=== PATIENT | female | born 1960 | race Caucasian/White ===

== ENCOUNTER 2019-08-29 10:38 | Outpatient (CLI) | payer OTHER, SELFPAY ==
[2019-08-29 11:09] LABS: Basophils Percent Auto 0.6 % (0.2-1.2); Eosinophils Absolute Auto 0.2 K/mm3 (0-0.3); Eosinophils Percent Auto 3.7 % (0-4.4); Hematocrit 42.6 % (37.0-47.0); Hemoglobin 13.9 g/dL (12.0-15.0); Immature Granulocyte Absolute 0.02 K/mm3 (0.00-0.031); Immature Granulocyte Percent A 0.4 % (0-0.5); Lymphocytes Absolute Auto 1.59 K/mm3 (0.9-3.2); Lymphocytes Percent Auto 30.6 % (18.3-44.2); Mean Corpuscular HGB Conc 32.6 g/dl (32-36); Mean Corpuscular Hemoglobin 29.6 pg (26-34); Mean Corpuscular Volume 90.8 fl (80-100); Mean Platelet Volume 11.3 fl (7.4-10.4); Monocytes Absolute Auto 0.5 K/mm3 (0.1-0.6); Monocytes Percent Auto 9.4 % (2.6-8.5); Neutrophils Absolute Auto 2.9 K/mm3 (1.3-6.7); Neutrophils Percent Auto 55.3 % (45.5-73.1); Platelet Count Result 256 k/mm3 (150-375); Red Blood Count 4.69 M/mm3 (4.2-5.4); Red Cell Distribution Width 13.9 % (11.5-14.5); White Blood Count 5.2 K/mm3 (4.5-10.0)
[2019-08-29 11:23] LABS: Hemoglobin A1C 5.7 % (<5.7)
[2019-08-29 11:25] LABS: Alanine Aminotransferase 34 U/L (4-35); Albumin Level 4.3 g/dL (3.5-5.1); Alkaline Phosphatase 69 U/L (38-126); Aspartate Amino Transferase 29 U/L (14-36); Bilirubin,Total 0.3 mg/dL (0.2-1.3); Blood Urea Nitrogen 19 mg/dL (7-17); Calcium 9.3 mg/dL (8.4-10.2); Carbon Dioxide 29 mmol/L (22-30); Chloride 102 mmol/L (98-107); Cholesterol 244 mg/dL (0-200); Estimated Glomerular Filt Rate > 60; Glucose 93 mg/dL (65-105); HDL Direct 52 mg/dL; Potassium 4.1 mmol/L (3.4-5.0); Sodium 137 mmol/L (137-145); Triglycerides 101 mg/dL (<150)
[2019-08-29 11:35] LABS: LDL Cholesterol Direct 166 mg/dL
[2019-08-29 11:49] LABS: Vitamin D 25 Hydroxy 45.7 ng/mL
== END 2019-08-29 10:39 | disposition home or self-care (01) ==
PROVIDERS: PCP Family Medicine; Visit Provider Family Medicine
DX: Z13.220 Encounter for screening for lipoid disorders (principal); F98.8 Other specified behavioral and emotional disorders with onset usually occurring in childhood and adolescence; R73.01 Impaired fasting glucose; E55.9 Vitamin D deficiency, unspecified
CPT/HCPCS: 36415; 80053; 80061; 82306; 83036; 84443; 85025

== ENCOUNTER 2019-09-05 12:01 | Outpatient (CLI) | payer OTHER, SELFPAY ==
[2019-09-05 13:06] LABS: Urine Cotinine NEGATIVE
== END 2019-09-05 12:02 | disposition home or self-care (01) ==
LOC: ANHSURGERY 12:04
PROVIDERS: PCP Family Medicine; Visit Provider Orthopaedic Surgery
DX: M17.11 Unilateral primary osteoarthritis, right knee (principal)
CPT/HCPCS: 36415; 80307; 87081

== ENCOUNTER 2019-09-23 00:20 | Outpatient (CLI) | payer OTHER, SELFPAY ==
[2019-09-23 18:32] LABS: SARS-CoV-2 RNA PCR Negative
== END 2019-09-23 00:21 | disposition home or self-care (01) ==
LOC: ANHCOVIDDT 00:21
PROVIDERS: PCP Family Medicine; Visit Provider Orthopaedic Surgery
DX: Z01.812 Encounter for preprocedural laboratory examination (principal); Z11.59 Encounter for screening for other viral diseases
CPT/HCPCS: 87635; C9803; U0003

== ENCOUNTER 2019-09-26 02:07 | Day surgery (SDC) | payer OTHER, SELFPAY ==
[2019-09-05 12:24] VITALS: BP 158/88; PULSE 98; RESP 20; TEMP 37.2; O2SAT 97
[2019-09-05 12:43] VITALS: BMI 36.0
--- NOTE | 2019-09-25 12:42 | WPDANESEPPF ---
Anes - Initial Pre Proc Eval Procedure: Operation Date: 09/26/19 07:30 Proposed Procedures p Right Total Knee Arthroplasty - Wan Martinez MD Date/Time: 09/25/19 12:42 Surgeon: Wan Martinez MD Pre Op Diagnosis: Right Knee OA Patient Data Age: 59 Gender: F Height: 1.61 m Weight: 93.8 kg Last Vital Signs Temp 37.2 C 09/05/19 12:24 Pulse 98 09/05/19 12:24 Resp 20 09/05/19 12:24 BP 158/88 H 09/05/19 12:24 Pulse Ox 97 09/05/19 12:24 Allergies Allergy/AdvReac Type Severity Reaction Status Date / Time cephalexin [From Keflex] Allergy Mild Rash Verified 09/05/19 12:16 sulfamethoxazole Allergy Mild RASH Verified 07/25/19 13:37 trimethoprim Allergy Mild RASH Verified 07/25/19 13:37 Sulfa (Sulfonamide Allergy Unknown Rash Verified 07/25/19 13:37 Antibiotics) Home Medications Medication Instructions Recorded Confirmed Type esomeprazole magnesium 40 mg 40 mg PO DAILY 01/25/19 09/26/19 History capsule,delayed release metoprolol tartrate 50 mg tablet 50 mg PO DAILY 01/25/19 09/26/19 History lisinopril 20 mg tablet 20 mg PO DAILY #90 tablet 02/09/19 09/26/19 Rx triamcinolone acetonide 0.1 % 1 applic TOPICAL BID #30 gm 07/25/19 09/26/19 Rx topical cream amlodipine 5 mg PO HS 09/05/19 09/26/19 History dextroamphetamine-amphetamine 20 mg PO PRN PRN 09/05/19 09/26/19 History [Adderall] ibuprofen [Advil] 200 mg PO Q6H PRN 09/05/19 09/26/19 History naproxen sodium [Aleve] 220 mg PO HS PRN 09/05/19 09/26/19 History Patient hx anesthesia problems: none Family hx anesthesia problems: none PMFSH Past Medical History Medical History (Updated 09/25/19 @ 12:44 by Issac Lucio MD) ADD (attention deficit disorder) Encounter for annual health examination Hypertension Obesity Osteoarthritis of right knee Recurrent tongue cancer Surgical History Surgical History History of appendectomy (~1988) History of (~2003) History of (~1996) History of (~1993) History of carpal tunnel surgery of right wrist (~2005) History of meniscectomy of right knee (~03/2013) History of repair of right rotator cuff (~2004) History of tonsillectomy (~1981) Hx of foot surgery (~2000) Family History Family History Mother Hypertension Family history of kidney disease Sibling Hypertension Family history of diabetes mellitus in first degree relative Diabetes mellitus Family history of malignant neoplasm of esophagus Father Family history of rheumatoid arthritis Family history of diabetes mellitus in first degree relative Family history of congestive heart failure Family history of heart disease in male family member before age 55 Diabetes mellitus Hypertension Family history of cardiovascular disease Family history of arthritis Family history of kidney disease Other Family history of allergic disorder Social History Social History Smoking status: Never smoker Second hand tobacco smoke exposure: No Alcohol intake: current Alcohol use details: MAYBE ONE PER MONTH Substance use: never Substance use type: does not use Living arrangements: with family Gender identity (if verbalized by the patient): Female Spiritual care concerns: No Anes - Eval Final PreProcedure Day of Procedure 09/25/19 12:42 Patient weight: obese Heart: regular rate and rhythm Lungs: clear to auscultation and normal air movement Airway: Mallampati scale class II Neurological: alert and oriented Last oral intake: >/= 8 hours ASA classification: III Emergent: no Anesthetic plan: proceed Anesthesia type and monitoring: general LMA Informed Consent: The patient's anesthetic plan and its attendant risks and benefits were discussed with the patient/family/POA. Questions were solicit
[2019-09-26] VITALS (12 sets, daily range): BP systolic 128–152; BP diastolic 65–82; PULSE 70–84; RESP 10–18; TEMP 36.2–36.8; O2SAT 97–100
--- NOTE | ~2019-09-26 | XR_ITS ---
XR knee RT 2V DATE: 09/26/2019 10:02 INDICATION: Right total knee surgery TECHNIQUE: Postoperative portable crosstable lateral and AP views of right knee COMPARISON: 09/17/2022 [facility] right knee radiographs FINDINGS: Status post right total knee arthroplasty with patellar resurfacing. The prosthetic compone nts are in normal alignment. No fracture or dislocation, periosteal reaction or bone destruction. There is expected immediately postoperative subcutaneous and intra-articular emphysema. IMPRESSION: Status post right total knee arthroplasty with patellar resurfacing Reviewed, dictated and finalized at location B.
[2019-09-26] MEDS: LACTATED RINGERS 1,000 ML 30 ML IV CONT ×2 (06:45→09:47)
[2019-09-26] MEDS: ACETAMINOPHEN 500 MG TABLET 1000 MG PO (06:55)
[2019-09-26] MEDS: KETOROLAC 15 MG/ML VIAL (*BKC) IV PUSH (06:55)
[2019-09-26] MEDS: TRANEXAMIC ACID 1,000MG/ISO100 1,000 MG/100 ML BAG 200 MG IVPB (06:58)
--- NOTE | 2019-09-26 07:13 | WPDHPUPDATE1 ---
History and Physical Update Update Date/Time: 09/26/19 07:13 History and Physical has been reviewed, including an updated exam of the patient. There are NO changes in the patient's condition. Risks, benefits, and alternatives have been discussed and questions answered. Patient agrees to proceed with procedure.
--- NOTE | 2019-09-26 07:14 | WPDANESPNB ---
Anes - Peripheral Nerve Block Date/Time: 09/26/19 07:14 I have discussed with the patient/family/POA the placement of a peripheral nerve block for post-operative pain management, including associated risks, benefits, complications, and side effects. Alternative methods of post-operative analgesia were detailed. Questions were solicited and answers provided to the satisfaction of the patient/family/POA. Time-Out: A pre-procedural Time-Out was completed immediately before starting the procedure and confirmed: Patient Identification, Site, Procedure, Patient Position and the Availability of Requisite Equipment. Clinical Indications: Acute post-operative pain management requested by the operative surgeon. Nerve Block Insertion Note Anes-nerve block: adductor canal right Patient position: supine Skin prep: chlorhexidine Needle: 22 gauge, stimulating, insulated echogenic needle. Needle length: 80 mm Technique: ultrasound Technique comment: in plane Injectate: bupivacaine 0.5% with epi 5 mcg/ml (30cc) Observations: tolerated well Complications: none Procedure start time:: 705 Procedure end time::
[2019-09-26] MEDS: ceFAZolin 2 GM/D5W 50 ML 2 GM/50 ML BAG IVPB (07:21)
[2019-09-26] MEDS: GENTAMICIN BONE CEMENT REFOBACIN 1 EACH TOPICAL (08:56)
--- NOTE | 2019-09-26 09:37 | PM.PROC ---
Procedure Note - Detailed Date of procedure: 09/26/19 Pre-op diagnosis: Right Knee OA Post-op diagnosis: same Procedure performed: Total knee arthroplasty, right Description of procedure: Valgus knee required a large lateral release. PCL intact. 4 degree external rotation. 8mm distal femoral cut with minimal lateral resection. Implants: [employer]ine [employer]lon size 3 press-fit femur, size 4 cemented low-profile tibia, 13 mm CS polyethylene insert, 32mm asymmetric metal backed patellar component. Anesthesia: GETA and regional (subsartorial nerve block) Surgeon: Wan Martinez MD Estimated blood loss (mL): 100 Drains: No Complications: None Condition: stable Disposition: PACU Findings: OPERATIVE DETAILS: The patient was given a nerve block preoperatively, and then brought to the operating room. A general anesthetic was administered. The leg was prepped and draped in the usual sterile fashion. The limb was elevated and the tourniquet inflated to 300 mmHg during initial exposure, and cementation. A longitudinal incision was created along the medial border of the patella and patellar tendon, and a minimally invasive optimized mid-vastus approach to the knee was performed. No medial release was taken. The knee was then flexed. The osteophytes were carefully removed. The intramedullary guide was placed in the femoral canal. The distal femoral resection was then taken with the oscillating saw. The collateral ligaments were carefully protected. The tibia was carefully exposed. The jig was applied, and the proximal tibia was resected according to preoperative plan. The knee was balanced in extension. Appropriate releases were taken where needed. An extensive lateral release was required; pie crusting and eventual release of the popliteus and iliotibial band. The anterior cruciate ligament and meniscal remnants were removed. The posterior cruciate ligament was preserved. The patella was measured. Patellar resection was carried out with the oscillating saw. The lug holes drilled. The femur was sized and rotation assessed using a combination of gap balancing, posterior referencing, and the AP axis. 4 degrees external rotation selected to match the AP axis. The 4 in 1 cutting block was used to finish the femoral cuts after equal gaps were assured. The lug holes were drilled. The osteophytes were carefully removed from the back of the knee. The knee was copiously irrigated with antibiotic solution periodically throughout the procedure. The meniscal remnants were removed. The spacer block was used to confirm equal flexion and extension gaps. Further releases were performed as needed. The tibia was sized and broached. The bony surfaces were prepared for cementing with pulsatile lavage. The real tibial component was cemented into position followed by press fitting the femoral component. Excess cement was carefully removed. The patella component was press-fit. Patellar tracking was carefully assessed. No additional releases were required. The wound was closed with #1 Vycril suture, #2 Quill suture, 0-Quill suture, and 2-0 Quill suture followed by Steri-Strips. A sterile bulky dressing was applied. Meticulous hemostasis was maintained throughout the procedure. There were no complications. The patient was extubated and brought to the recovery room in stable condition after the application of sterile dressing with Gabriel bandage.
--- NOTE | 2019-09-26 11:19 | ADMGEN ---
This patient, Oliva Carter, was admitted to 2 Medical Room 242-01. Patient/family oriented to hospital policies and general routines including ID bracelet, bed and alarms, visiting hours, pain management, procedures, bathroom and other care routines, personal items, smoking policy, room service/diet, and visiting hours. Valuables list has been completed. Information on how to activate the Rapid Response Team has been discussed. Patient/Family are encouraged to report perceived risks to care and to ask questions if they do not understand what they are told or what they should do.
[2019-09-26] MEDS: SODIUM CHLORIDE 0.9% IV 1,000 ML 125 ML IV CONT (11:32)
--- NOTE | 2019-09-26 12:02 | PC.NURSE ---
Clarified patients metoprolol prescription. In the computer system, it was entered at metoprolol tartrate 50mg daily. However, patient states she takes metoprolol succinate 50mg daily. Called and notified Dr. Martinez. Received order to change order to what she normally does at home.
[2019-09-26] MEDS: DOCUSATE SODIUM 100 MG CAPSULE PO (17:11)
[2019-09-26] MEDS: ASPIRIN 81 MG ENTERIC TABLET PO (17:11)
[2019-09-26] MEDS: MELOXICAM 7.5 MG TABLET PO (17:11)
[2019-09-26] MEDS: FAMOTIDINE 20 MG TABLET PO (22:19)
[2019-09-26] MEDS: amLODIPine BESYLATE 5 MG TABLET PO (22:19)
[2019-09-27 00:47] VITALS: BP 144/72; PULSE 78; RESP 16; TEMP 36.3; O2SAT 99
[2019-09-27 04:47] VITALS: BP 137/71; PULSE 78; RESP 16; TEMP 36.5; O2SAT 100
[2019-09-27 05:26] LABS: Basophils Percent Auto 0.3 % (0.2-1.2); Eosinophils Percent Auto 0.1 % (0-4.4); Hematocrit 35.8 % (37.0-47.0); Hemoglobin 11.7 g/dL (12.0-15.0); Immature Granulocyte Absolute 0.05 K/mm3 (0.00-0.031); Immature Granulocyte Percent A 0.4 % (0-0.5); Lymphocytes Absolute Auto 1.26 K/mm3 (0.9-3.2); Lymphocytes Percent Auto 10.5 % (18.3-44.2); Mean Corpuscular HGB Conc 32.7 g/dl (32-36); Mean Corpuscular Hemoglobin 29.9 pg (26-34); Mean Corpuscular Volume 91.6 fl (80-100); Mean Platelet Volume 11.5 fl (7.4-10.4); Monocytes Absolute Auto 0.8 K/mm3 (0.1-0.6); Neutrophils Absolute Auto 9.8 K/mm3 (1.3-6.7); Neutrophils Percent Auto 81.7 % (45.5-73.1); Platelet Count Result 214 k/mm3 (150-375); Red Blood Count 3.91 M/mm3 (4.2-5.4); Red Cell Distribution Width 13.8 % (11.5-14.5)
[2019-09-27 05:30] LABS: Blood Urea Nitrogen 14 mg/dL (7-17); Calcium 8.5 mg/dL (8.4-10.2); Carbon Dioxide 24 mmol/L (22-30); Chloride 105 mmol/L (98-107); Estimated CRCL calculation 97 ml/min; Estimated Glomerular Filt Rate > 60; Glucose 150 mg/dL (65-105); Potassium 3.9 mmol/L (3.4-5.0); Sodium 136 mmol/L (137-145)
--- NOTE | 2019-09-27 07:36 | WPDANESPN ---
Anes - Prog Note Post-Op Date/Time: 09/27/19 07:36 Cardiovascular status: normal Respiratory status: normal Airway patency: baseline Mental status: baseline Post-Op hydration status: normal Vital Signs: Last Vital Signs Temp 36.5 C 09/27/19 04:47 Pulse 78 09/27/19 04:47 Resp 16 09/27/19 04:47 BP 137/71 09/27/19 04:47 Pulse Ox 100 09/27/19 04:47 I/O: Intake & Output 09/26/19 09/26/19 09/27/19 15:59 23:59 07:59 Intake Total 940 810 650 Output Total 400 200 600 Balance 540 610 50 Laboratory Tests 09/27/19 04:44 09/27/19 04:44 09/26/19 09/27/19 09/27/19 06:33 04:44 04:44 WBC 12.0 H RBC 3.91 L Hgb 11.7 L Hct 35.8 L MCV 91.6 MCH 29.9 MCHC 32.7 RDW 13.8 Plt Count 214 MPV 11.5 H Immature Gran % (Auto) 0.4 Neut % (Auto) 81.7 H Lymph % (Auto) 10.5 L [place] % (Auto) 7.0 Eos % (Auto) 0.1 Baso % (Auto) 0.3 Lymph # (Auto) 1.26 [place] # (Auto) 0.8 H Eos # (Auto) 0.0 Baso # (Auto) 0.0 Abs Immat Gran (auto) 0.05 H Absolute Neuts (auto) 9.8 H Absolute Nucleated RBC 0.0 Nucleated RBC % 0.0 Sodium 136 L Potassium 3.9 Chloride 105 Carbon Dioxide 24 BUN 14 D Creatinine 0.60 L Estim Creat Clear Calc 97 Estimated GFR > 60 Glucose 150 H Calcium 8.5 Blood Type O Positive Antibody Screen Negative Post-procedural complaints: none Patient Feedback: Patient satisfied with anesthetic care.
[2019-09-27] MEDS: ASPIRIN 81 MG ENTERIC TABLET PO (09:00)
[2019-09-27] MEDS: lisinopriL 20 MG TABLET PO (09:00)
[2019-09-27] MEDS: FAMOTIDINE 20 MG TABLET PO (09:00)
[2019-09-27] MEDS: DOCUSATE SODIUM 100 MG CAPSULE PO (09:00)
[2019-09-27 09:01] VITALS: PULSE 80
[2019-09-27] MEDS: PANTOPRAZOLE 40 MG TABLET PO (09:01)
[2019-09-27] MEDS: METOPROLOL SUCCINATE EXT REL 50 MG TABCR PO (09:01)
[2019-09-27] MEDS: MELOXICAM 7.5 MG TABLET PO (09:01)
[2019-09-27 10:00] VITALS: BP 125/54; PULSE 80; RESP 16; TEMP 36.8; O2SAT 99
--- NOTE | 2019-09-27 16:51 | PM.DS ---
DS: Admitting Diagnosis Admitting Diagnosis Admitting Diagnosis: Unilateral primary osteoarthritis, right knee DS: Discharge Diagnosis Discharge Diagnosis (1) Status post total knee replacement, right: Code(s): Z96.651 - Presence of right artificial knee joint Status: Acute DS: Summary Hospital Course Reason for hospitalization: Total knee arthroplasty. Hospital Course: Tolerated surgery well. Progressed appropriately with therapy. Status at Discharge Functional status at discharge: uses cane/walker Time Spent with Patient Time attestation: Total time spent providing and/or coordinating discharge services: Exam Const: General: no acute distress Resp: Effort & Inspection: normal respiratory effort Skin: Other: Wound healing well. Mepilex dressing intact. No hematoma or drainage. Neuro: Motor exam (neuro): 5/5 motor strength present throughout Sensory Exam: normal sensation Psych: Mental Status: mental status grossly normal Speech and movement: Normal speech and movement present DS: Data Data Completed and Pending Labs on day of discharge: Labs from last 24 hours 09/27/19 09/27/19 04:44 04:44 WBC 12.0 H RBC 3.91 L Hgb 11.7 L Hct 35.8 L MCV 91.6 MCH 29.9 MCHC 32.7 RDW 13.8 Plt Count 214 MPV 11.5 H Immature Gran % (Auto) 0.4 Neut % (Auto) 81.7 H Lymph % (Auto) 10.5 L [place] % (Auto) 7.0 Eos % (Auto) 0.1 Baso % (Auto) 0.3 Lymph # (Auto) 1.26 [place] # (Auto) 0.8 H Eos # (Auto) 0.0 Baso # (Auto) 0.0 Abs Immat Gran (auto) 0.05 H Absolute Neuts (auto) 9.8 H Absolute Nucleated RBC 0.0 Nucleated RBC % 0.0 Sodium 136 L Potassium 3.9 Chloride 105 Carbon Dioxide 24 BUN 14 D Creatinine 0.60 L Estim Creat Clear Calc 97 Estimated GFR > 60 Glucose 150 H Calcium 8.5 Discharge Plan Discharge Patient Disposition: Home, Self-Care Discharge Instructions: See instruction sheet. Patient Instructions: Oxycodone/Acetaminophen (By mouth), Aspirin (By mouth), Precautions after Total Joint Replacement Surgery (ED) Follow-up/Referrals: Wan Martinez MD [Physician] - Discharge Medications: New aspirin 81 mg Tablet,Delayed Release (Dr/Ec) 81 mg PO BID Qty: 28 RF: 0 oxycodone-acetaminophen 5-325 mg tablet 1 - 2 tablet PO Q4-6H MDD 8 tablets PRN (Reason: pain) Qty: 30 RF: 0 Continued esomeprazole magnesium 40 mg capsule,delayed release(DR/EC) 40 mg PO DAILY RF: 0 ibuprofen [Advil] 200 mg Tablet 200 mg PO HS PRN (Reason: Pain) RF: 0 amlodipine 5 mg tablet 5 mg PO DAILY RF: 0 dextroamphetamine-amphetamine [Adderall] 20 mg tablet 20 mg PO PRN PRN (Reason: CONSENTRATION) RF: 0 glucosamine sulfate [Glucosamine] 500 mg Tablet 500 mg PO DAILY RF: 0 metoprolol succinate 50 mg tablet extended release 24 hr 50 mg PO DAILY RF: 0 lisinopril 20 mg tablet 20 mg PO DAILY Qty: 90 RF: 3 Discontinued naproxen sodium [Aleve] 220 mg Capsule 220 mg PO HS PRN (Reason: Pain) RF: 0 Discharge Date/Time: 09/27/19 12:26 Quality VTE Prophylaxis VTE prophylaxis: mechanical ordered (CARRIE rahman and [place])
== END 2019-09-27 12:26 | disposition home or self-care (01) ==
LOC: ANHSURGERY 06:44 → ANH2MED 11:07
PROVIDERS: PCP Family Medicine; Visit Provider Orthopaedic Surgery
PROC: (CPT 27447; principal; 2019-09-26 07:30)
DX: M17.11 Unilateral primary osteoarthritis, right knee (principal); G89.18 Other acute postprocedural pain; F98.8 Other specified behavioral and emotional disorders with onset usually occurring in childhood and adolescence; I10 Essential (primary) hypertension; E66.9 Obesity, unspecified; Z68.36 Body mass index [BMI] 36.0-36.9, adult
CPT/HCPCS: 27447; 64447; 36415; 73560; 80048; 85025; 86850; 86900; 86901; 97110; 97116; 97161; 97165; 97530; A9270; C1713; C1776; J0131; J0171; J0690; J1100; J1170; J1885; J2250; J2270; J2405; J2704; J2795; J3010; J7030; J7120

== ENCOUNTER → 2019-12-28 09:47 | Outpatient (CLI) | payer OTHER, SELFPAY ==
--- NOTE | ~2019-12-28 | CT_ITS ---
EXAMINATION: CT soft tissue neck w con DATE: 12/28/2019 10:17 INDICATION: Personal history of malignant neoplasm of tongue. TECHNIQUE: Computed tomography (CT) of the neck was performed with 75 mL Omnipaque-350 intravenous co ntrast. Automated exposure control and iterative reconstruction technique were employed. The dose-michela gth product was 389.94 mGy-cm. COMPARISON: None FINDINGS: Left maxillary sinus is small and nearly completely opacified with thickening and sclerosis of the sinus [place], consistent with chronic sinusitis. The tongue is unremarkable. The pharyngeal mu cosal space and larynx are unremarkable. There are no pathologically enlarged lymph nodes. There are punctate sialoliths in the left parotid gland. There is severe cervical and thoracic spondylosis. IMPRESSION: 1. No evidence of metastatic disease. Reviewed, dictated and finalized at location A.
--- NOTE | ~2019-12-28 | XR_ITS ---
EXAMINATION: XR chest 2V 12/28/2019 10:27 INDICATION: Personal history of malignancy. PROCEDURE: Two-view chest COMPARISON: 05/11/2012 FINDINGS: The lungs are clear. The cardiomediastinal silhouette is within normal limits. There are no pleural effusions. There is no pneumothorax suspected. IMPRESSION: 1: NO ACUTE CARDIOPULMONARY DISEASE. Reviewed, dictated and finalized at location B.
[2019-12-28 10:11] LABS: Estimated Glomerular Filt Rate > 60
== END ==
DX: K21.9 Gastro-esophageal reflux disease without esophagitis (principal); K13.21 Leukoplakia of oral mucosa, including tongue; Z85.810 Personal history of malignant neoplasm of tongue
CPT/HCPCS: 70491; 71046; Q9967

== ENCOUNTER 2021-10-07 16:48 | Outpatient (CLI) | payer OTHER, SELFPAY ==
--- NOTE | ~2021-10-07 | XR_ITS ---
EXAMINATION: XR chest 2V Exam Date/Time: 10/07/2021 17:15 CDT HISTORY: R07.9 - LT MEDIAL CHEST PAIN Comparison: 12/28/2019. RESULT: Lines, tubes, and devices: None. Lungs and pleura: Clear. Cardiomediastinal silhouette: Stable. Other: No acute osseous or upper abdominal finding. IMPRESSION: No acute cardiopulmonary process. Reviewed, dictated and finalized at location K.
== END 2021-10-07 16:49 | disposition home or self-care (01) ==
PROVIDERS: PCP Family Medicine; Visit Provider Nurse Practitioner Gerontology
DX: R07.9 Chest pain, unspecified (principal)
CPT/HCPCS: 71046